=== PATIENT | male | born 1985 | race Caucasian/White ===

== ENCOUNTER 2019-08-21 11:27 | Emergency (ER) | payer OTHER, SELFPAY ==
--- NOTE | 2019-08-21 11:34 | ED.FEVER ---
HPI - Fever General Chief Complaint: Upper Respiratory Infection Stated Complaint: Headaches aches fever Time Seen by Provider: 08/21/19 11:55 Source: patient and RN notes reviewed Mode of arrival: ambulatory Limitations: no limitations History of Present Illness HPI Narrative: 33-year-old male presents with concern for fever, headaches, body aches, sore throat. He denies cough, shortness of breath, rhinorrhea, nasal congestion, ear pain. Reports she has been taking Tylenol Motrin. Denies any known exposure to someone tested positive for coronavirus, strep throat. MD elicited complaint: fever Related Data Home Medications Medication Instructions Recorded Confirmed pantoprazole [Protonix] 40 mg PO QAM 08/21/19 08/21/19 Allergies Allergy/AdvReac Type Severity Reaction Status Date / Time No Known Allergies Allergy Verified 08/21/19 11:57 Review of Systems Review of Systems: Narrative: CONSTITUTIONAL: Reports malaise, fever, fatigue. Denies chills, sweats. EYES: Denies visual changes, redness, or discharge. ENT: Denies rhinorrhea, congestion, sinus pain, otalgia. Reports sore throat. CARDIOVASCULAR: Denies chest pain, palpitations, or edema. RESPIRATORY: Denies cough or dyspnea. GASTROINTESTINAL: Denies abdominal pain, nausea, vomiting, diarrhea, bloody, or mucous stools. GENITOURINARY: Denies dysuria or hematuria. SKIN: Denies rash or itching. MUSCULOSKELETAL: Denies back pain, joint pain. Reports myalgia. NEUROLOGIC: Denies numbness, weakness. Report headache. PMFSH Comments At time of signature, agree with nursing past medical, surgical, social and family history. There is no relevant family history pertinent to the presenting complaint Exam Narrative: Exam Narrative: GENERAL: Well-appearing, well-nourished, and in no acute distress. HEAD: Normocephalic EYES: PERRLA, conjunctivae clear ENT: Nares clear, turbinates pink, no discharge. Mucous membranes moist. TM pearly becerril with sharp light reflex bilaterally; no tragal tenderness. Oropharynx erythematous without lesions. Tonsils enlarged, with white exudate. No drooling, no hoarseness, no trismus, uvula midline. NECK: Supple. No lymphadenopathy CHEST: Clear to auscultation, breath sounds equal. No wheezing, rhonchi, rales, or stridor. No respiratory distress, speaks in full sentences. HEART: Regular rate and rhythm. No murmur heard. SKIN: Warm, dry, no rash. NEURO: Alert and oriented x3. No focal deficits, cranial nerves II through XII grossly intact PSYCH: Normal mood and affect Course Course Emergency Course: Patient is aware of diagnosis, understands and agrees to treatment plan. Anticipatory guidance given. Patient agrees to follow-up as directed and is aware of reasons to seek care at the emergency department. Portions of this record may have been created with voice recognition software Vital Signs Vital signs: Vital Signs Temperature 100.1 F H 08/21/19 11:36 Pulse Rate 93 08/21/19 11:36 Respiratory Rate 18 08/21/19 11:36 Blood Pressure 105/77 08/21/19 11:36 Pulse Oximetry 98 08/21/19 11:36 Temperature 100.1 F H 08/21/19 11:36 Pulse Rate 93 08/21/19 11:36 Respiratory Rate 18 08/21/19 11:36 Blood Pressure 105/77 08/21/19 11:36 Pulse Oximetry 98 08/21/19 11:36 Reviewed. MDM - Fever MDM Narrative Medical decision making narrative: Differential diagnosis considered: Coronavirus, strep pharyngitis, allergic rhinitis, upper respiratory tract infection, sinusitis, rhinosinusitis, nasopharyngitis. viral pharyngitis, otitis media, otitis externa, pneumonia, bronchitis, viral cough syndrome, viral syndrome, and influenza. Exam findings show no acute concerns or changes; patient is non-toxic appearing and is in no distress. Patient is appropriate for outpatient treatment and follow-up. Lab Data Attestation: I reviewed the patient's lab results. Labs: Strep Screen Presumptive Negative *(Reference R
[2019-08-21 11:36] VITALS: BP 105/77; PULSE 93; RESP 18; TEMP 37.8; O2SAT 98
== END 2019-08-21 12:10 | disposition home or self-care (01) ==
PROVIDERS: Emergency Provider Nurse Practitioner
DX: J03.90 Acute tonsillitis, unspecified (principal); Z20.828 Contact with and (suspected) exposure to other viral communicable diseases
CPT/HCPCS: 87081; 87880; 99213; G0463

== ENCOUNTER 2020-03-19 08:05 | Emergency (ER) | payer OTHER, SELFPAY ==
--- NOTE | 2020-03-19 08:21 | PC.NURSE ---
SPOKE WITH PT AND REPORTS HE WAS SENT HOME FROM WORK WITH A 100.7 FEVER. PT HAS HAD HEADACHE AND N/V/DIARRHEA THAT STARTED YESTERDAY. INFORMED PT OF COVID TESTING AND ORDERING. PT STATES HE WILL JUST WAIT AND SEE IF HE NEEDS TESTING. DOES NOT WANT TO BE SEEN TODAY.
== END 2020-03-19 08:21 | disposition left against medical advice (07) ==
LOC: EXPBETH 08:13
PROVIDERS: Emergency Provider Nurse Practitioner Family
DX: Z53.21 Procedure and treatment not carried out due to patient leaving prior to being seen by health care provider (principal)
CPT/HCPCS: 99199

== ENCOUNTER 2021-07-24 08:19 | Emergency (ER) | payer OTHER, SELFPAY ==
[2021-07-24 08:34] VITALS: BP 125/91; PULSE 69; RESP 14; TEMP 36.8; O2SAT 100
--- NOTE | 2021-07-24 08:39 | ED.EXTPRO ---
HPI - Extremity Problem General Chief complaint: Extremity Injury, Upper Stated complaint: Left Hand/Wrist Pain Time Seen by Provider: 07/24/21 09:04 Source: patient and RN notes reviewed Mode of arrival: ambulatory Limitations: no limitations History of Present Illness HPI Narrative: 35-year-old male presents with concern for bilateral wrist pain, worse on the left. He reports he also has pain in his elbow and forearm. Reports he has been diagnosed with carpal tunnel bilaterally and is scheduled to have surgery in July. Reports he has been getting steroid injections in the wrist which help control the pain. He reports that his last steroid injection was in April and it is not lasting as long as he usually does and the pain is returned. He reports has been using Tylenol ibuprofen without relief. Reports has been using a brace at night. He is worried that his pain affects his work. Related Data Allergies Allergy/AdvReac Type Severity Reaction Status Date / Time No Known Allergies Allergy Verified 07/24/21 08:46 Review of Systems Review of Systems: CONSTITUTIONAL: Denies malaise, chills, sweats, or fever. CARDIOVASCULAR: Denies chest pain, palpitations, or edema. RESPIRATORY: Denies cough or dyspnea. SKIN: Denies rash or itching, bruising, redness, swelling. MUSCULOSKELETAL: Reports bilateral wrist pain, left elbow and forearm pain NEUROLOGIC: Denies numbness, weakness All systems reviewed & are unremarkable except as noted in HPI and below PMFSH Comments At time of signature, agree with nursing past medical, surgical, social and family history. There is no relevant family history pertinent to the presenting complaint Exam Narrative: GENERAL: Well-appearing, well-nourished, and in no acute distress. HEAD: Normocephalic, atraumatic. EYES: PERRLA, conjunctivae clear NECK: Supple. CHEST: Speaks in full sentences. No respiratory distress. HEART: Regular rate and rhythm. Normal and equal peripheral pulses. EXTREMITIES: Bilateral upper extremities have grossly normal range of motion, sensation, strength SKIN: Warm, dry, no rash. NEURO: Alert and oriented x3. PSYCH: Normal mood and affect Course Course Emergency Course: Discussed with patient temporary pain management, discussed following up with his surgeon for further pain management Patient is aware of diagnosis, understands and agrees to treatment plan. Anticipatory guidance given. Patient agrees to follow-up as directed and is aware of reasons to seek care at the emergency department. Portions of this record may have been created with voice recognition software Level of Care: Express Care Visit Vital Signs Vital signs: Reviewed. Critical Care Time Critical Care Time Critical Care Time: No Discharge Plan Discharge Clinical Impression: Acute wrist pain Qualifiers: Laterality: bilateral Qualified Code(s): M25.531 - Pain in right wrist Patient Disposition: Home, Self-Care Condition: Stable Instructions: Tramadol (By mouth) Additional Instructions: Tylenol for lesser pain Take prednisone as directed for the inflammation [place] tramadol for pain that is not controlled with ibuprofen or Tylenol Follow up with your surgeon for further pain management Prescriptions: New prednisone 20 mg tablet 40 mg PO DAILY 5 Days Qty: 10 0RF tramadol 50 mg tablet 50 mg PO Q6H PRN (Reason: pain) Qty: 20 0RF Follow-up/Referrals: PHYSICIAN,SHAFT SINKER [Primary Care Provider] - Time of Disposition: 09:11
== END 2021-07-24 09:17 | disposition home or self-care (01) ==
PROVIDERS: Emergency Provider Nurse Practitioner
DX: M25.532 Pain in left wrist (principal); M25.531 Pain in right wrist; K21.9 Gastro-esophageal reflux disease without esophagitis
CPT/HCPCS: 99213; G0463